=== PATIENT | male | born 1965 | race African-American/Black ===

== ENCOUNTER 2018-08-13 09:18 | Emergency (ER) | payer BC ==
[~2018-08-13] VITALS: Ht 180.3 cm; Wt 117.9 kg
[2018-08-13 09:19] VITALS: BP 165/96
[2018-08-13] MEDS ORDERED: CYCLOBENZAPRINE5 MG PO (10:17)
[2018-08-13] MEDS ORDERED: NORCO 5-325 TA1 EACH PO (10:17)
== END 2018-08-13 10:23 | disposition home or self-care (01) ==
LOC: ER 09:18
DX: S43.402A Unspecified sprain of left shoulder joint, initial encounter (principal); S16.1XXA Strain of muscle, fascia and tendon at neck level, initial encounter; S70.01XA Contusion of right hip, initial encounter; V49.9XXA Car occupant (driver) (passenger) injured in unspecified traffic accident, initial encounter; Y93.89 Activity, other specified; Y92.410 Unspecified street and highway as the place of occurrence of the external cause; Y99.8 Other external cause status

== ENCOUNTER 2019-01-07 07:12 | Inpatient (IN) | payer BC ==
[~2019-01-07] VITALS: Ht 180.3 cm; Wt 121.1 kg
[2019-01-07 07:12] VITALS: BP 136/89
[~2019-01-07 07:12] MED LIST: CYCLOBENZAPRINE5 MG PO; NORCO 5-325 TA1 EACH PO
[2019-01-07 08:05] LABS: CALCIUM 8.9 mg/dL (8.5-10.1); CREATININE 1.3 mg/dL (0.7-1.3); POTASSIUM 4.2 mmol/L (3.5-5.1)
[2019-01-07 08:09] LABS: URINE BILIRUBIN NEGATIVE (Negative); URINE BLOOD NEGATIVE (Negative); URINE CLARITY CLOUDY; URINE COLOR YELLOW; URINE GLUCOSE-RANDOM* NEGATIVE (Negative); URINE KETONES NEGATIVE (Negative); URINE LEUKOCYTES-REFLEX NEGATIVE (Negative); URINE NITRITE-REFLEX NEGATIVE (Negative); URINE PROTEIN (DIPSTICK) TRACE (Negative); URINE SPECIFIC GRAVITY >= 1.030 (1.005-1.035); URINE UROBILINOGEN 0.2 E.U./dl (0.2-1.0)
[2019-01-07 08:10] LABS: ALBUMIN 3.3 g/dL (3.4-5.0); TOTAL BILIRUBIN 1.1 mg/dL (<0.1-1.0); TOTAL PROTEIN 6.8 g/dL (6.4-8.2)
[2019-01-07 08:19] LABS: ABSOLUTE NEUTROPHILS 11.1 thou/uL (1.4-8.2); BASOPHILS 0.4 % (0.0-2.0); EOSINOPHILS 0.3 % (0.0-3.0); HEMATOCRIT 46.6 % (42.0-52.0); HEMOGLOBIN 15.8 gm/dL (14.0-18.0); LYMPHOCYTES 9.4 % (24.0-44.0); MCH 29.3 pg (26.0-34.0); MCHC 33.8 g/dL (28.0-37.0); MCV 86.8 fL (80.0-100.0); MONOCYTES 10.3 % (1.0-8.0); PLATELET COUNT 204 thou/uL (150-400); POLYS 79.6 % (36.0-66.0); RBC 5.37 mil/uL (4.50-6.00)
--- NOTE | 2019-01-07 08:37 | NUR ---
DIALYSIS PT STATES TODAY IS DAY FOR IT. CATH IN LEFT FOREARM. HAS PORT ACCESS.
[2019-01-07 10:01] VITALS: BP 116/83
[2019-01-07 10:11] VITALS: BP 129/85
[2019-01-07 10:32] VITALS: BP 134/84
--- NOTE | 2019-01-07 11:17 | NUR ---
VSS-AFEBRILE. LUNGS CLEAR-ROOM AIR. C/O ABDOMINAL PAIN RATED 7/10 ON NUMERIC PAIN SCALE. MEDICATED WITH IV MORPHINE-WILL MONITOR FOR RELIEF. HYPOACTIVE BS-NO REPORTED BM X 2 DAYS. NO DIFFICULTY VOIDING. ADMSSION ORDERS IMPLEMENTED, AWAITING SURGICAL CONSULT. NPO PER ORDERS.
--- NOTE | 2019-01-07 17:46 | NUR ---
VSS-AFEBRILE. LUNGS CLEAR-ROOM AIR. C/O ABDOMINAL PAIN THAT IS PARTIALLY RELIEVED WITH PRESCRIBED PO AND IV MEDICATIONS. CLEAR LIQUID DIET ORDERED, NO REPORTED N/V. OOB AD MARY-STEADY ON FEET. DISCUSSED PLAN OF CARE WITH PATIENT AND FAMILY, VERBALIZED UNDERSTANDING OF ALL CONTENT DISCUSSED. PERSONAL ITEMS WITHIN REACH, FREQUENT ROUNDING.
[2019-01-07 20:40] VITALS: BP 156/80
--- NOTE | 2019-01-08 02:24 | NUR ---
PT SLEPT MOST OF THE NIGHT PT GIVEN 2 NORCO FOR PAIN THAT WAS ABLE TO MANAGE HIS PAIN AND HELP HIM SLEEP NO ISSUES OVERNIGHT.
[2019-01-08 04:53] LABS: HEMOGLOBIN 15.1 gm/dL (14.0-18.0); MCH 29.7 pg (26.0-34.0); MCHC 34.4 g/dL (28.0-37.0); MCV 86.3 fL (80.0-100.0); RBC 5.1 mil/uL (4.50-6.00); RDW 14.1 % (10.5-14.5)
[2019-01-08 05:02] LABS: CALCIUM 8.2 mg/dL (8.5-10.1); CREATININE 1.4 mg/dL (0.7-1.3); POTASSIUM 4.4 mmol/L (3.5-5.1)
[2019-01-08 05:08] VITALS: BP 145/73
[2019-01-08 09:06] VITALS: BP 128/78
--- NOTE | 2019-01-08 09:40 | NUR ---
cm visited with pt at bedside, he is a & 4, and able to make his needs know. "independent at home, live with family , no dme needs, just need pen to write with"/homero. vikash provided pt with writing pen, no anticipated needs. will cont following as needed for dc needs. dcp home
--- NOTE | 2019-01-08 11:46 | NUR ---
TOWARDS POC PT A/O X4, VSS, AFEBRILE, PAIN MANAGED BY MEDS. PT ADVANCES TO FULL LIQUID DIET, NO NV NOTED. NO CONCERNS VOICED, WILL CONTINUE TO MONITOR.
[2019-01-08 19:05] VITALS: BP 155/74
[2019-01-08 19:50] VITALS: BP 142/94
--- NOTE | 2019-01-09 05:42 | NUR ---
PATIENT ALERT AND ORIENTED X4. C/O MILD PAIN, MED GIVEN WITH GOOD RELIEF. PAIN REMAINS UNDER CONTROL THIS SHIFT. IV FLUIDS CONTINUES WITH IV ANTIBIOTICS. SLEPT MOST OF NIGHT.
[2019-01-09] MEDS ORDERED: AUGMENTIN 875-1 EACH PO (09:06)
[2019-01-09] MEDS ORDERED: MIRALAX17 GM PO (09:06)
[2019-01-09] MEDS ORDERED: HYDROCODON-ACE1 EAC7 PO (09:06)
--- NOTE | 2019-01-09 09:30 | NUR ---
ASSUMED PT CARE AT 0700. ASSESSMENT COMPLETED AND IS CHARTED. VSS. PT IS AWAKE,ALERT/ORIENTED X4. DENIES PAIN OR NAUSEA AT THIS TIME. TOLERATED BREAKAST WELL. WANTS TO GO HOME. WILL AWAIT PHYSICIAN ORDERS AND CONTINUE CURRENT CARE.
[2019-01-09 10:14] VITALS: BP 136/89
[2019-01-09 11:51] VITALS: BP 136/89
--- NOTE | 2019-01-09 12:10 | NUR ---
DISCHARGE NOTE: SW reviewed chart and spoke with nursing and attending physician. Pt was transferred to [facility] from and is medically stable for discharge home today. Pt's family to provide transportation home. No SW needs identified at this time, but is available to assist should needs arise.
== END 2019-01-09 12:24 | disposition home or self-care (01) | DRG 391 ==
LOC: ER 07:12 → EROBS 09:34 → SICU 09:34 → 4W 09:34 → SICU 01-08 18:53 → ENTRNSPT 01-09 12:03 → EDTRNSPTSTS 01-09 12:06 → SICU 01-09 12:24
PROVIDERS: Emergency Medicine; ADMIT Hospitalist
DX: K57.80 Diverticulitis of intestine, part unspecified, with perforation and abscess without bleeding (principal); K65.9 Peritonitis, unspecified; D72.829 Elevated white blood cell count, unspecified; Z79.899 Other long term (current) drug therapy; Z28.21 Immunization not carried out because of patient refusal
CPT/HCPCS: 10040; 15002

== ENCOUNTER 2019-08-24 16:10 | Inpatient (IN) | payer BC ==
[~2019-08-24] VITALS: Ht 180.3 cm; Wt 112.5 kg
[~2019-08-24 16:10] MED LIST changes: +AUGMENTIN 875-1 EACH PO; +HYDROCODON-ACE1 EAC7 PO; +MIRALAX17 GM PO
[2019-08-24 16:21] VITALS: BP 148/91
[2019-08-24 16:41] LABS: URINE BILIRUBIN NEGATIVE (Negative); URINE BLOOD NEGATIVE (Negative); URINE CLARITY CLEAR; URINE COLOR YELLOW; URINE GLUCOSE-RANDOM* NEGATIVE (Negative); URINE KETONES NEGATIVE (Negative); URINE LEUKOCYTES-REFLEX NEGATIVE (Negative); URINE NITRITE-REFLEX NEGATIVE (Negative); URINE PROTEIN (DIPSTICK) NEGATIVE (Negative)
--- NOTE | 2019-08-24 17:42 | NUR ---
PIV PLACED BY THIS RN- FULL RAINBOW PLUS ARELLANO TOP SENT TO LAB FOR ANALYSIS PT RESTING IN BED WITH CALL LIGHT IN REACH NO FURTHER QUESTIONS AT THIS TIME
[2019-08-24 17:43] LABS: ABSOLUTE NEUTROPHILS 10.9 thou/uL (1.4-8.2); BASOPHILS 0.6 % (0.0-2.0); EOSINOPHILS 0.7 % (0.0-3.0); HEMATOCRIT 49.6 % (42.0-52.0); HEMOGLOBIN 16.4 gm/dL (14.0-18.0); LYMPHOCYTES 11.4 % (24.0-44.0); MCH 28.8 pg (26.0-34.0); MCHC 33.1 g/dL (28.0-37.0); MCV 86.9 fL (80.0-100.0); MONOCYTES 8.5 % (1.0-8.0); PLATELET COUNT 231 thou/uL (150-400); POLYS 78.8 % (36.0-66.0); RBC 5.71 mil/uL (4.50-6.00); RDW 14.3 % (10.5-14.5); WBC 13.9 thou/uL (4.0-11.0)
[2019-08-24 17:52] LABS: CALCIUM 9.4 mg/dL (8.5-10.1); CREATININE 1.2 mg/dL (0.7-1.3); POTASSIUM 4.5 mmol/L (3.5-5.1)
[2019-08-24 17:58] LABS: ALBUMIN 3.4 g/dL (3.4-5.0); TOTAL BILIRUBIN 0.6 mg/dL (<0.1-1.0); TOTAL PROTEIN 7.9 g/dL (6.4-8.2)
--- NOTE | 2019-08-24 18:10 | NUR ---
PT TAKEN TO CT IN ED CART
[2019-08-24 19:49] VITALS: BP 142/90
[2019-08-24 20:49] VITALS: BP 118/83
[2019-08-24 22:27] VITALS: BP 146/90
--- NOTE | 2019-08-25 04:42 | NUR ---
new admission for diverticulitis. patient denied pain or discomfort. patient aox4 makes needs known. patient is up at leticia. call light and personal items within reach. patient refused scds. patient in bed asleep at this time breathing regular and regular.
[2019-08-25 05:34] VITALS: BP 139/73
[2019-08-25 05:44] LABS: HEMATOCRIT 45.8 % (42.0-52.0); HEMOGLOBIN 15.2 gm/dL (14.0-18.0); MCH 29.3 pg (26.0-34.0); MCHC 33.3 g/dL (28.0-37.0); MCV 88.2 fL (80.0-100.0); RBC 5.2 mil/uL (4.50-6.00); RDW 14.5 % (10.5-14.5); WBC 10.8 thou/uL (4.0-11.0)
[2019-08-25 06:08] LABS: ALBUMIN 2.7 g/dL (3.4-5.0); CALCIUM 8.6 mg/dL (8.5-10.1); CREATININE 1.2 mg/dL (0.7-1.3); POTASSIUM 4.1 mmol/L (3.5-5.1); TOTAL BILIRUBIN 0.7 mg/dL (<0.1-1.0); TOTAL PROTEIN 6.5 g/dL (6.4-8.2)
[2019-08-25 12:58] VITALS: BP 143/91
--- NOTE | 2019-08-25 15:35 | NUR ---
PT ADMITTED RELATED TO DIVERTICULITIS. CM REVIEWED CHART AND SPOKE WITH CARE TEAM. CM MET WITH PT AT BEDSIDE THIS DAY. PT IS A&O X4. CM ROLE INTRODUCED PT INDICATED HE HAD BEEN LIVING WITH HIS WITH NO STEPS TO ENTER AND SOME INSIDE. PT INDICATED HE HAD BEEN INDEPENDENT WITH GAIT AND ADLS [employer]. PT INDICATED THAT HE PLANS TO RETURN HOME ONCE MEDICALLY STABLE. CM TO FOLLOW INDICATED WITH DC PLANNING.
[2019-08-25 19:35] VITALS: BP 146/97
--- NOTE | 2019-08-25 19:49 | NUR ---
Assumed pt care this am, pt denies any pain just a slight discomfort. Seen by Dr. Edwards, no IR drainage to be placed just treat with IV abx. Diet was changed to clear liquids and is well olerated. Refused SCD's, though pt is up at leticia and steady on his gait. No signs or verbalizations opf distress have been noted. POC followed and VS stable.
--- NOTE | 2019-08-26 03:46 | NUR ---
ASSUMED CARE OF PT AT 1900HRS. PT IS AOX4 AND LETS NEEDS BE KNOWN. PT IS UP AF MARY. PT REPORTED SOME PAIN BUT IT WAS TOLERABLE. PT DENIED NAUSEA/DIARRHEA. PT IS TOLERATING DIET. PT WAS ABLE TO GET COMFORTABLE AND SLEEP PART OF THE SHIFT. VSS AND NO S/S OF AUTE DISTRESS. WILL CONTINUE TO MONITOR.
[2019-08-26 07:20] VITALS: BP 152/80
--- NOTE | 2019-08-26 10:50 | NUR ---
PT A&OX4, VSS, DENIES PAIN, DENIES N/V/D. PATIENT ABDOMEN SOFT AND ROOUNG, NON TENDER TO TOUCH. PATIENT MOVED TO FULL DIET AND TOLERATING. NO SIGNS OF DISTRESS, WILL CONTINUE TO MONITOR.
[2019-08-26 10:55] VITALS: BP 152/80
--- NOTE | 2019-08-26 13:14 | NUR ---
CARE TEAM INDICATED THAT PT IS MEDICALLY STABLE TO DC HOME THIS DAY. PT IS TO DC HOME WITH NO NEEDS. CM PROVIDED PT WITH LIST OF PCP'S HERE AT THE HOSPITAL. NO OTHER CM INTERVENTION INDICATED. CASE CLOSED.
--- NOTE | 2019-09-01 17:26 | HC ---
[facility] [place] [address] CONSULTATION Name: JF MOYA Room #: 461-P [facility] IN M.R.#: [id number] Admission: 08/24/19 Attend Phys: Terrence Ramon Discharge: 08/26/19 Date of : 67 Report #: [id number] THIS REPORT FOR: //name// CC: DL physician/PCP Terrence Ramon DATE OF SERVICE: 08/25/2019 CONSULTING PHYSICIAN: Malcolm Edwards MD REASON FOR CONSULTATION: Diverticulitis. ASSESSMENT: Perforated diverticulitis with abscess. RECOMMENDATIONS: 1. Thank you for the consultation. I will follow along. 2. I would not recommend percutaneous drainage of the abscess given that it is an intramural abscess. I recommend continuing conservative management with IV antibiotics. 3. Follow up with me as an outpatient for likely planned sigmoidectomy when diverticulitis improved. HISTORY OF PRESENT ILLNESS: The patient is a very pleasant 54-year-old gentleman who presented to the ER with left lower quadrant abdominal pain. The patient reports that he is also experiencing stinging when he would urinate or defecate. The patient reports that he has been experiencing abdominal pain for approximately the last 1 week and he has just been managing it at home until it got so severe and with the stinging while he urinates or defecates, he also became concerned and presented to the ER. The patient does endorse some nausea over the last week, but denies vomiting. He is not currently nauseated. He is having bowel movements. His last one was yesterday, is nonbloody. No diarrhea. He endorses chills, but denies fevers, night sweats, chest pain or shortness of air. The patient was hospitalized here earlier this year with diverticulitis. It was noncomplicated at that time. He did undergo colonoscopy in [facility] following that. PAST MEDICAL HISTORY: 1. Diverticulitis. 2. Denies any other past medical problems. PAST SURGICAL HISTORY: Colonoscopy in 03/2019. SOCIAL HISTORY: Denies use of tobacco. Occasional alcohol, no recreational drugs. 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 [facility] [address] [place] [address] CONSULTATION Name: JF MOYA Room #: 461-P [facility] IN M.R.#: [id number] Admission: 08/24/19 Attend Phys: Terrence Ramon Discharge: 08/26/19 Date of : 67 Report #: [id number] FAMILY HISTORY: Denies coagulopathy or malignancy. REVIEW OF SYSTEMS: CONSTITUTIONAL: No fever. No chills. HEENT: Denies blurring of vision, double vision, headaches, hearing loss, sinus drainage or sore throat. Denies blurring of vision, double vision, headaches, hearing loss, sinus drainage or sore throat. CARDIOVASCULAR: Denies chest pain, palpitations, orthopnea or paroxysmal nocturnal dyspnea. RESPIRATORY: Denies cough, wheezing, hemoptysis, or shortness of air. GASTROINTESTINAL: See above and below. GENITOURINARY: See above and below. MUSCULOSKELETAL: No joint pain. No muscle pain. NEUROLOGICAL: Denies tremor, stroke or seizure. Denies tremor, stroke or seizure. HEMATOLOGIC / LYMPHATICS: Denies easy bruising, easy bleeding or enlarged lymph nodes. SKIN: No rash or ulceration. ENDOCRINE: No heat or cold intolerance PSYCHIATRIC: Denies depression, anxiety, or schizophrenia. PHYSICAL EXAMINATION: VITAL SIGNS: Temperature 37.8, pulse 89, respiratory rate 20, blood pressure 118/83, pulse ox is 96%. GENERAL: No apparent distress, alert and oriented. HEENT: PERRLA, EOMI, MMM, NCAT NECK: Supple. No LAD CARDIOVASCULAR: Regular rhythm and rate. Hemodynamically stable. Normal capillary refill. PULMONARY: Nonlabored. Clear to auscultation bilaterally ABDOMEN: Soft, tender to palpation in the left lower quadrant with voluntary guarding. No rebound, no rigidity, no diffuse peritonitis. The patient has no detectable hernia on exam. EXTREMITIES: Calves soft, nontender, no edema. SKIN: No rashes or bruises. PSYCHIATRIC: Normal mood and affect Normal mood and affect NEUROLOGICAL: Grossly intact. CN II-XII grossly intact. MUSCULOSKELETAL: 5/5 strength in upper extremities and lower extremities bilaterally LYMPHATICS: No cervical, inguinal, or supraclavicular lymphadenopathy. LABS: White blood count is 13.9, hemoglobin 16.4, hematocrit 49.6, platelets 231. Sodium 136, potassium 4.5, creatinine 1.2, lactic acid 1.1. Total bilirubin [address] [address] CONSULTATION Name: JF MOYA Room #: 461-P [facility] M.R.#: [id number] Admission: 08/24/19 Attend Phys: Terrence Ramon Discharge: 08/26/19 Date of : 67 Report #: [id number] 0.6, AST 26, ALT 32, alkaline phosphatase 76, albumin 3.4. Urinalysis negative. IMAGING: CT of the abdomen and pelvis. Impression: 1. CT studies of the abdomen and pelvis demonstrate focal diverticulitis involving the proximal sigmoid colon. 2. There is a 2.5 x 3.2 cm sized fluid collection along the wall of the sigmoid colon suggesting a diverticular abscess or abscess within the colon wall. 3. There is nothing for perforation. <ELECTRONICALLY SIGNED> By: Malcolm Edwards MD 09/01/19 1726 1949 2043 Malcolm Edwards MD /nt
== END 2019-08-26 12:31 | disposition home or self-care (01) | DRG 391 ==
LOC: ER 16:10 → 4W 19:14 → EROBS 19:14 → 4W 20:32
PROVIDERS: Nurse Practitioner; Physician Assistant; ADMIT Hospitalist
DX: K57.20 Diverticulitis of large intestine with perforation and abscess without bleeding (principal); E43 Unspecified severe protein-calorie malnutrition; Z79.899 Other long term (current) drug therapy; Z68.34 Body mass index [BMI] 34.0-34.9, adult
CPT/HCPCS: 10040; 10045

== ENCOUNTER 2020-01-31 19:26 | Emergency (ER) | payer BC ==
[~2020-01-31] VITALS: Ht 180.3 cm; Wt 120.2 kg
[2020-01-31 19:58] LABS: ABSOLUTE NEUTROPHILS 6.9 thou/uL (1.4-8.2); BASOPHILS 0.6 % (0.0-2.0); HEMATOCRIT 50.2 % (42.0-52.0); HEMOGLOBIN 16.8 gm/dL (14.0-18.0); LYMPHOCYTES 20.5 % (24.0-44.0); MCH 29.4 pg (26.0-34.0); MCHC 33.5 g/dL (28.0-37.0); MCV 87.7 fL (80.0-100.0); MONOCYTES 10.4 % (1.0-8.0); PLATELET COUNT 195 thou/uL (150-400); POLYS 67.5 % (36.0-66.0); RBC 5.72 mil/uL (4.50-6.00); RDW 14.4 % (10.5-14.5); WBC 10.2 thou/uL (4.0-11.0)
[2020-01-31 19:59] LABS: URINE BILIRUBIN NEGATIVE (Negative); URINE BLOOD NEGATIVE (Negative); URINE CLARITY CLEAR; URINE COLOR YELLOW; URINE GLUCOSE-RANDOM* NEGATIVE (Negative); URINE KETONES NEGATIVE (Negative); URINE LEUKOCYTES-REFLEX NEGATIVE (Negative); URINE NITRITE-REFLEX NEGATIVE (Negative); URINE PROTEIN (DIPSTICK) NEGATIVE (Negative); URINE SPECIFIC GRAVITY >= 1.030 (1.005-1.035); URINE UROBILINOGEN 0.2 E.U./dl (0.2-1.0)
[2020-01-31 20:11] LABS: CALCIUM 8.8 mg/dL (8.5-10.1); CREATININE 1.2 mg/dL (0.7-1.3); POTASSIUM 3.9 mmol/L (3.5-5.1)
[2020-01-31 20:17] LABS: ALBUMIN 3.6 g/dL (3.4-5.0); TOTAL BILIRUBIN 0.5 mg/dL (<0.1-1.0); TOTAL PROTEIN 7.2 g/dL (6.4-8.2)
[2020-01-31] MEDS ORDERED: CIPRO500 M1 PO (20:38)
[2020-01-31] MEDS ORDERED: METRONIDAZOLE500 M4 PO (20:38)
[2020-01-31] MEDS ORDERED: COLACE100 MG PO (20:38)
--- NOTE | 2020-01-31 20:52 | EKG ---
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
[2020-01-31 20:57] VITALS: BP 177/111
== END 2020-01-31 20:57 | disposition home or self-care (01) ==
LOC: ER 19:26
PROVIDERS: Physician Assistant
DX: K57.92 Diverticulitis of intestine, part unspecified, without perforation or abscess without bleeding (principal)